=== PATIENT | female | born 1965 | race Caucasian/White ===

== ENCOUNTER 2016-07-26 22:42 | Emergency (ER) | payer OTHER ==
[~2016-07-26] VITALS: Ht 162.6 cm; Wt 125.9 kg
[2016-07-26 22:46] VITALS: BP 154/97; PULSE 120; RESP 20; O2SAT 94
--- NOTE | 2016-07-26 23:51 | ED.REPORT ---
HPI-URI / Cough / Cold Date of Service Jul 26, 2016 ED Provider: Elliott White MD Patient is a 50 year old female with a history of schizophrenia, diabetes mellitus, and hypertension who presents to the ED with flu-like symptoms for the past 2 weeks. Patient reports myalgias, headache, ear pain, sore throat, hoarse voice, cough and nasal congestion. Patient states that her sore throat and hoarse voice have been present for the past 3-4 weeks. Patient reports worsening myalgias over the past few days, with left sided flank pain. Patient is febrile in the ED at 38.7C . The patient also has a rash on her legs and abdomen, which she states is due to an allergic reaction to Risperidone. The patient's fiance has also recently been ill with similar symptoms. The patient is diabetic and states that she has been very thirsty since she became sick. Her sugars are usually in the 400s, but have been in the 200s this week. Nursing Notes Stated Complaint: ABDOMINAL PAIN, BODY ACHES Chief Complaint: General Complaint Nursing Notes Reviewed: Yes Allergies: Uncoded Allergies: RESPIRDAL (Allergy, Intermediate, Rash, 07/26/16) Scheduled Oseltamivir Phosphate (Tamiflu) 75 Mg Capsule 75 MG PO BID General Time Seen by MD: 23:50 Chief Complaint Other (flu-like symptoms) Hx Obtained From: Patient Arrived By: Walk-in Onset Occurred: More than a week ago... (2 weeks) Symptom Duration: Since onset Location: : Diffuse myalgia Quality: Painful Severity: Current: Moderate Severity: Maximum: Moderate Recent Healthcare: No recent doctor visit, No recent hospitalization Similar Sx Previous: No Past Medical History Past Medical History Schizophrenia Reports: Diabetes mellitus, Hypertension Past Surgical History none reported Smoking History Unknown if Ever Smoker Social History Other Social History: Good social support, Local resident Ambulatory Status Independent Review of Systems Constitutional: Reports: Fever Ears / Nose / Throat: Reports: Earache bilateral, Nasal congestion, Sore throat , Toothache Respiratory: Reports: Non-productive cough Skin: Reports Rash Neurologic: Reports: Headache Complete sys rev & neg: except as marked. Female: Reports: Flank pain Musculoskeletal: Reports: Myalgia Physical Exam Initial Vital Signs Vital Signs (First) Date Time Temp Pulse Resp B/P Pulse Ox O2 Delivery O2 Flow Rate FiO2 07/26/16 22:46 38.7 120 20 154/97 94 Room Air Initial VS: Reviewed, Vital signs abnormal Neck: Supple, Non-tender Abdomen / GI: Soft, Non-tender Extremities: Vascular intact, Neuro intact Neurologic: Alert, Oriented, Nonfocal Psychiatric: Mood/affect normal, Behavior normal, Normal thought content General/Constitutional: Awake, Alert, No acute distress, Well hydrated Appearance / Presentation: Positive: Obese ENT: Airway patent, Pharynx NL, Tympanic membs NL Respiratory / Chest: Breath sounds NL, Breath sounds = bilat, No respiratory distress, No rales, No rhonchi, No wheezing Head / Eyes: Normocephalic, PERRL, Conjunctiva NL Skin: Warm, Dry Rash / Lesion Notes: multiple patches of psoriasis on legs Interpretation & Diagnostics Interpretation & Diagnostics: POSITIVE FOR FLU B NEGATIVE FOR FLU A Re-Eval/Medical Decision Med Decision/Clinical Course 50-year-old female who has had progressively symptoms for about a week. She was markedly worse the last day or so. She tested positive for influenza B. It is assumed that this is new onset, so she will be treated with Tamiflu. Follow up as needed for increasing sore respiratory symptoms, distress. Re-Evaluation/Progress : Time of Eval: 00:14 Patient Status: Condition improved Re-Evaluation/Progress Note: Patient has influenza B and will be treated with Tamiflu. Patient understands and agrees with the plan to be discharged home. Discharge instructions and follow-up discussed. All questions were addressed. Return to the ED warnings given. Counseled Regarding: Diagnosis, Need for follow-up, When/why to return to ED Discharge & Departure Impression: Primary Impression: Influenza B Disposition: Home Discharge Condition All VS Reviewed: Yes Condition: Stable Patient Instructions: Influenza (ED) Additional Instructions: Drink plenty of fluids. Tylenol and/or ibuprofen as needed for discomfort. Tamiflu (oseltamivir) 75 mg by mouth twice a day, #10 prescription written. Follow-up with your regular provider as needed for persistent symptoms. Referrals: OTHER,PHYSICIAN (PCP) (Family) Scribe Attestation Portions of this note were transcribed by Yashira Escoto. I, Dr. White personally performed the history, physical exam and medical decision-making; I reviewed and confirmed the accuracy of the information in the transcribed note. Signed by: Pili Rosas, 07/27/2016 0025 copies to: OTHER,PHYSICIAN Elliott White MD Jul 26, 2016 23:51 Ysahira Escoto Jul 26, 2016 23:59
[2016-07-27] MEDS ORDERED: TAM75UDCAP PO (00:45)
[2016-07-27 00:48] VITALS: BP 136/102; PULSE 120; RESP 18; O2SAT 95
== END 2016-07-27 00:45 | disposition home or self-care (01) ==
LOC: SED 22:42
DX: J10.1 Influenza due to other identified influenza virus with other respiratory manifestations (principal); H92.03 Otalgia, bilateral; R21 Rash and other nonspecific skin eruption; I10 Essential (primary) hypertension; F20.9 Schizophrenia, unspecified; E11.9 Type 2 diabetes mellitus without complications